=== PATIENT | female | born 1960 | race Caucasian/White ===

== ENCOUNTER 2017-07-18 10:00 | Inpatient (IN) | payer OTHER ==
[~2017-07-18] VITALS: Ht 152.4 cm; Wt 80.7 kg
[~2017-07-18 10:00] MED LIST: AMBIEN10 MG PO; CEFADROXIL500 MG PO; OMEPRAZOLE20 MG PO; PERCOCET 5/321 UDTAB PO; XARELTO10 MG PO; ZOLOFT25 MG PO
[2017-08-09] MEDS ORDERED: PERCOCET 5-3251 EACH PO (08:38)
[2017-08-09] MEDS ORDERED: XARELTO10 MG PO (08:38)
[2017-08-09] MEDS ORDERED: DUI500 PO (08:38)
== END 2017-08-09 11:01 | DRG 470 ==
LOC: O/R 08-06 06:05 → MEDI 08-06 06:05 → SURH 08-06 08:45 → MEDI 08-06 18:45
PROVIDERS: Orthopaedic Surgery
PROC: 0QNF0ZZ Release Left Patella, Open Approach (ICD-10-PCS; 2017-08-06)
PROC: 0SRD0J9 Replacement of Left Knee Joint with Synthetic Substitute, Cemented, Open Approach (ICD-10-PCS; principal; 2017-08-06 08:45)
DX: M17.12 Unilateral primary osteoarthritis, left knee (principal); D62 Acute posthemorrhagic anemia; M81.0 Age-related osteoporosis without current pathological fracture; M22.12 Recurrent subluxation of patella, left knee; E66.01 Morbid (severe) obesity due to excess calories; M17.11 Unilateral primary osteoarthritis, right knee; I10 Essential (primary) hypertension